=== PATIENT | male | born 1945 | race Caucasian/White ===

== ENCOUNTER 2016-11-16 12:09 | Inpatient (IN) | payer OTHER, BC ==
[2016-11-16 12:23] VITALS: BMI 25.8
--- NOTE | 2016-11-16 12:57 | PDOC ---
History of Present Illness - General History Source: Patient Exam Limitations: No Limitations <Silverio Duval - Last Filed: 11/16/16 15:03> <Iona Rosen - Last Filed: 11/16/16 16:38> - General Chief Complaint: Irregular Heart Beat Stated Complaint: IRREGULAR HEARTBEAT (PCP SENT) Time Seen by Provider: 11/16/16 12:53 - History of Present Illness Initial Comments: 11/16/16 14:19 71-year-old male with history of Parkinson's disease, hypertension, diabetes, status post CVA immediately following left hip replacement surgery referred to the ER by Dr. Wade of cardiology for new onset atrial fibrillation. Patient reports persistent hypotension of the past several days with lightheadedness, generalized weakness and malaise. Patient denies vomiting/ diarrhea/fever/chills/Chest pain/shortness of breath. Patient denies previous history of atrial fibrillation or flutter. Patient denies rectal bleeding or melena. REVIEW OF SYSTEMS CONSTITUTIONAL: No fever, no chills, no fatigue; + weakness EYES: No visual changes ENT: No ear pain, no sore throat CARDIOVASCULAR: No chest pain, no palpitations; + new onset atrial fibrillation RESPIRATORY: No cough, no SOB GI: No abdominal pain, no nausea, no vomiting, no constipation, no diarrhea GENITOURINARY: No dysuria, no frequency, no hematuria MUSKULOSKELETAL: No backpain, no joint pain, no myalgias SKIN: No rash NEURO: No headache EXAMINATION CONSTITUTIONAL: Well-appearing; well-nourished; in no apparent distress HEAD: Normocephalic; atraumatic EYES: PERRL; EOM intact; conj-pink; ENMT: External appears normal; normal oropharynx NECK: Supple; non-tender; no cervical lymphadenopathy CARD: Irregularly irregular; Normal S1, S2; no murmurs, rubs, or gallops RESP: Normal chest excursion with respiration; breath sounds clear and equal bilaterally; no wheezes, rhonchi, or rales ABD: Soft, non-distended; non-tender; no palpable organomegaly, no palpable hernias EXT: + led pipe rigidity in all 4 extr; + ulnar deviation and flexion of the MCP joints b/l; non-tender to palpation; distal pulses intact SKIN: Warm, dry, no rash NEURO: No focal neurological deficiencies. + Resting tremor bilaterally to the upper extremities, resolving upon voluntary movement initiation. (Silverio Duval) Past History - Past Medical History Anemia: No Asthma: No Cancer: No Cardiac Disorders: No CVA: No COPD: No CHF: No Dementia: No Diabetes: Yes (NIDDM) GI Disorders: No Disorders: No HTN: Yes Hypercholesterolemia: Yes Liver Disease: No Seizures: No Thyroid Disease: No Other medical history: Parkinson's - Surgical History Abdominal Surgery: No Appendectomy: No Cardiac Surgery: No Cholecystectomy: No Lung Surgery: No Neurologic Surgery: No Orthopedic Surgery: No - Psycho/Social/Smoking Cessation Hx Suicidal Ideation: No Smoking History: Never smoked Have you smoked in the past 12 months: No Information on smoking cessation initiated: No Hx Alcohol Use: Yes Drug/Substance Use Hx: No Substance Use Type: None Hx Substance Use Treatment: No <Silverio Duval - Last Filed: 11/16/16 15:03> <Iona Rosen - Last Filed: 11/16/16 16:38> - Past Medical History Allergies/Adverse Reactions: Allergies Allergy/AdvReac Type Severity Reaction Status Date / Time Penicillins Allergy Itching Verified 11/16/16 12:23 Home Medications: Ambulatory Orders Amlodipine Besylate [Norvasc -] 5 mg PO DAILY 11/16/16 Aspirin [Aspirin EC] 81 mg PO DAILY 11/16/16 Carbidopa/Levodopa [Carbidopa-Levodopa 25-250 Tab] 2.5 each PO TID 11/16/16 Gabapentin 400 mg PO HS 11/16/16 Gabapentin [Neurontin -] 400 mg PO Q8H 11/16/16 Metformin HCl [Glucophage -] 500 mg PO BID 11/16/16 Metoprolol Tartrate [Lopressor -] 50 mg PO BID 11/16/16 Pantoprazole Sodium [Protonix] 40 mg PO DAILY 11/16/16 Ramipril 5 mg PO DAILY 11/16/16 Cardiac Specific PMH - Complaint Specific PMHX Pacemaker: No <Silverio Duval - Last Filed: 11/16/16 15:03> - Vital Signs Last Vital Signs Temp Pulse Resp BP Pulse Ox 97.6 F 53 L 14 109/64 100 11/16/16 12:16 11/16/16 12:16 11/16/16 12:16 11/16/16 12:16 11/16/16 12:16 Heart Score/ECG Review - History History: Slightly suspicious - Electrocardiogram EKG: Non specific repolarization disturbance - Age Age: >/= 65 - Risk Factors Risk Factors Heart Score: Yes Hx Hypertension, Yes Hx Diabetes Based on the list above the patient has:: 1-2 risk factors - Troponin Troponin: </= normal limit - Score Heart Score - Total: 4 <Silverio Duval - Last Filed: 11/16/16 15:03> <Iona Rosen - Last Filed: 11/16/16 16:38> - ECG Intrepretation Comment:: 11/16/16 14:26 79, atrial fibrillation with slow ventricular response, left axis deviation, negative voltage criteria for LVH, Q waves in 3 and aVF, abnormal EKG. ( Silverio Duval) ED Treatment Course - LABORATORY CBC & Chemistry Diagram: 11/16/16 13:35 11/16/16 13:35 <Silverio Duval - Last Filed: 11/16/16 15:03> - LABORATORY CBC & Chemistry Diagram: 11/16/16 13:35 11/16/16 13:35 <Iona Rosen - Last Filed: 11/16/16 16:38> - ADDITIONAL ORDERS Additional order review: Laboratory Results 11/16/16 11/16/16 13:35 13:35 INR 1.06 Sodium 140 Potassium 5.1 Chloride 101 Carbon Dioxide 27 Anion Gap 12 BUN 26 H Creatinine 1.6 H Creat Clearance w eGFR 43.07 Random Glucose 123 H Calcium 9.4 Magnesium 2.2 Total Bilirubin 0.8 AST 11 L D ALT 10 L D Alkaline Phosphatase 91 Creatine Kinase 77 Troponin I < 0.02 Total Protein 7.2 Albumin 4.2 11/16/16 13:35 RBC 4.25 MCV 91.3 MCHC 32.7 RDW 14.4 D MPV 9.0 D Neutrophils % 56.6 Lymphocytes % 26.3 Monocytes % 13.2 H Eosinophils % 3.3 D Basophils % 0.6 D - RADIOLOGY Radiograph Interpretation: 11/16/16 13:41 EXAM: RAD/CHEST X-RAY PORTABLE Interpreted by Dr. Pancho Johnson IMPRESSION: There are no prior studies for comparison. There is an apical lordotic projection with degenerative spine and shoulder changes, clear lungs, prominent knob, normal yenifer and large heart. The angles are sharp. An acute chest process is not seen. (Iona Rosen) Medical Decision Making <Silverio Duval - Last Filed: 11/16/16 15:03> <Iona Rosen - Last Filed: 11/16/16 16:38> - Medical Decision Making 11/16/16 14:42 Patient 71-year-old male with history of Parkinson's disease, hypertension, diabetes, status post CVA referred to the ER for new onset atrial fibrillation. In the ER, patient is awake and alert, nontoxic appearing, hemodynamically stable. EKG reveals rate-controlled A. fib. Patient's chads 2 vascular score is 5 suggesting that he is at high risk of CVA due to regional fibrillation. We'll administer Lovenox. Will admit to telemetry further evaluation and treatment. ( Silverio Duval) 11/16/16 13:[address] Batista. Immediate response. Case was discussed. 11/16/16 13:[address] Torres. Immediate response. Case was discussed. (Iona Rosen) *DC/Admit/Observation/Transfer - Discharge Dispostion Admit: Yes <Silverio Duval - Last Filed: 11/16/16 15:03> <Iona Rosen - Last Filed: 11/16/16 16:38> Diagnosis at time of Disposition: Atrial fibrillation Qualifiers: Atrial fibrillation type: unspecified Qualified Code(s): I48.91 - Unspecified atrial fibrillation - Referrals - Attestations Scribe Attestion: 11/16/16 13:23 Documentation prepared by Iona Rosen, acting as medical transcription supervisor for Silverio Duval MD. (Iona Rosen)
[2016-11-16 13:58] LABS: BASOPHIL 0.6 % (0-2.0); EOSINOPHIL 3.3 % (0-4.5); MCH 29.8 pg (25.7-33.7); MCHC 32.7 g/dl (32.0-35.9); MEAN CELL VOLUME 91.3 fl (80-96); NEUTROPHILS 56.6 % (42.8-82.8); PLATELET COUNT 228 K/MM3 (134-434); RDW 14.4 % (11.9-15.9); WHITE BLOOD COUNT 7.4 K/mm3 (4.0-10.0)
[2016-11-16 14:00] LABS: ALBUMIN 4.2 g/dl (3.4-5.0); ANION GAP 12 (8-16); BILIRUBIN,TOTAL 0.8 mg/dL (0.2-1.0); CALCIUM 9.4 mg/dL (8.5-10.1); CO2 27 mmol/L (21-32); COCKROFT - GAULT 47.52; CREATININE 1.6 mg/dL (0.7-1.3); GLUCOSE,RANDOM 123 mg/dL (74-106); MAGNESIUM 2.2 mg/dL (1.8-2.4); SGOT/AST 11 U/L (15-37); SGPT/ALT 10 U/L (12-78); TOT PROT 7.2 g/dl (6.4-8.2)
[2016-11-16 14:04] LABS: ALK PHOS 91 U/L (45-117); TROPONIN I < 0.02 ng/ml (0.00-0.05)
[2016-11-16 14:25] LABS: INR 1.06 (0.82-1.09); PROTHROMBIN TIME (PATIENT) 11.7 SEC (9.98-11.88)
[2016-11-16] MEDS ORDERED: ENOXAPARIN NA (PORCINE) 80 MG/0.8 ML DISP.SYRIN SQ SCH (14:30)
[2016-11-16] MEDS ORDERED: ENOXAPARIN NA (PORCINE) 80 MG/0.8 ML DISP.SYRIN SQ ONE (16:51)
[2016-11-16] MEDS ORDERED: GABAPENTIN 400 MG CAPSULE (FP) PO SCH (20:15)
[2016-11-16] MEDS ORDERED: metFORMIN HCL 500 MG TABLET (FP) PO SCH (22:00)
[2016-11-16] MEDS ORDERED: GABAPENTIN 100 MG CAPSULE (FP) PO SCH (22:00)
[2016-11-16] MEDS: GABAPENTIN 100 MG CAPSULE (FP) PO SCH (22:02)
[2016-11-16] MEDS: CARBIDOPA/LEVODOPA 25/250 TABLET (FP) PO SCH (22:27)
[2016-11-17] MEDS: metFORMIN HCL 500 MG TABLET (FP) PO SCH ×2 (06:05→19:00)
[2016-11-17] MEDS: CARBIDOPA/LEVODOPA 25/250 TABLET (FP) PO SCH ×4 (06:05→21:55)
[2016-11-17] MEDS: GABAPENTIN 100 MG CAPSULE (FP) PO SCH ×3 (06:05→21:50)
[2016-11-17 07:34] LABS: BASOPHIL 0.7 % (0-2.0); EOSINOPHIL 4.5 % (0-4.5); MCH 30.3 pg (25.7-33.7); MCHC 33.4 g/dl (32.0-35.9); MEAN CELL VOLUME 90.5 fl (80-96); MEAN PLT VOLUME 8.5 fl (7.5-11.1); NEUTROPHILS 49.7 % (42.8-82.8); PLATELET COUNT 183 K/MM3 (134-434); RDW 14.5 % (11.9-15.9); WHITE BLOOD COUNT 4.8 K/mm3 (4.0-10.0)
[2016-11-17 07:35] LABS: ALBUMIN 3.4 g/dl (3.4-5.0); ANION GAP 7 (8-16); BILIRUBIN,TOTAL 0.7 mg/dL (0.2-1.0); CALCIUM 8.8 mg/dL (8.5-10.1); CO2 28 mmol/L (21-32); COCKROFT - GAULT 63.36; CREATININE 1.2 mg/dL (0.7-1.3); GLUCOSE,RANDOM 107 mg/dL (74-106); SGOT/AST 11 U/L (15-37); SGPT/ALT 7 U/L (12-78); TOT PROT 6.1 g/dl (6.4-8.2)
[2016-11-17 07:44] LABS: ALK PHOS 72 U/L (45-117); FREE T4 1.38 ng/dl (0.76-1.16); THYROID STIMULATING HORMONE 2.19 uIU/ml (0.358-3.74)
[2016-11-17 09:51] LABS: TROPONIN I < 0.02 ng/ml (0.00-0.05)
[2016-11-17] MEDS ORDERED: ENOXAPARIN NA (PORCINE) 80 MG/0.8 ML DISP.SYRIN SQ SCH (10:00)
[2016-11-17] MEDS ORDERED: ASPIRIN COATED 81 MG TABLET.EC PO SCH (10:00)
--- NOTE | 2016-11-17 10:04 | HP ---
Admitting History and Physical - Primary Care Physician PCP: Eligio Anderson - Admission Chief Complaint: New Afib History of Present Illness: ER HISTORY - History of Present Illness Initial Comments: 11/16/16 14:19 71-year-old male with history of Parkinson's disease, hypertension, diabetes, status post CVA immediately following left hip replacement surgery referred to the ER by Dr. Wade of cardiology for new onset atrial fibrillation. Patient reports persistent hypotension of the past several days with lightheadedness, generalized weakness and malaise. Patient denies vomiting/ diarrhea/fever/chills/Chest pain/shortness of breath. Patient denies previous history of atrial fibrillation or flutter. Patient denies rectal bleeding or melena. PT EXAMINED BY ME IN TELEMETRY Pt has been feeling dizzy and had seen Drill Doctor for regular check up. Denies chest pain or SOB.Sent to ER for dc BP meds and to start anticoagulation. 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 Cardiovascular: Yes: HTN Endocrine: Yes: Diabetes Mellitus Additional Past Medical History: Neuropathy - Smoking History Smoking history: Never smoked Have you smoked in the past 12 months: No - Alcohol/Substance Use Hx Alcohol Use: No Home Medications - Allergies Allergies/Adverse Reactions: Allergies Allergy/AdvReac Type Severity Reaction Status Date / Time Penicillins Allergy Itching Verified 11/16/16 12:23 - Home Medications Home Medications: Ambulatory Orders Amlodipine Besylate [Norvasc -] 5 mg PO DAILY 11/16/16 Aspirin [Aspirin EC] 81 mg PO DAILY 11/16/16 Carbidopa/Levodopa [Carbidopa-Levodopa 25-250 Tab] 2.5 each PO TID 11/16/16 Gabapentin 400 mg PO HS 11/16/16 Gabapentin [Neurontin -] 400 mg PO Q8H 11/16/16 Metformin HCl [Glucophage -] 500 mg PO BID 11/16/16 Metoprolol Tartrate [Lopressor -] 50 mg PO BID 11/16/16 Pantoprazole Sodium [Protonix] 40 mg PO DAILY 11/16/16 Ramipril 5 mg PO DAILY 11/16/16 Review of Systems - Review of Systems Constitutional: denies: Chills, Fever Cardiovascular: denies: Chest Pain, Palpitations, Shortness of Breath Neurological: reports: Dizziness, Tremors. denies: Weakness Physical Examination Vital Signs: Vital Signs Temperature 98.2 F 11/17/16 08:39 Pulse Rate 77 11/17/16 08:39 Respiratory Rate 20 11/17/16 08:39 Blood Pressure 108/67 11/17/16 08:39 O2 Sat by Pulse Oximetry (%) 99 11/17/16 06:00 Constitutional: Yes: No Distress, Calm Cardiovascular: Yes: Pulse Irregular Respiratory: Yes: CTA Bilaterally Gastrointestinal: Yes: Normal Bowel Sounds, Soft. No: Distention, Tenderness Edema: No Psychiatric: Yes: Alert Labs: CBC, BMP 11/17/16 05:35 11/17/16 05:35 Imaging - Results Chest X-ray: Image Reviewed (clear) EKG: Image Reviewed (Afib) Problem List - Problems (1) Atrial fibrillation Code(s): I48.91 - UNSPECIFIED ATRIAL FIBRILLATION Qualifiers: Atrial fibrillation type: unspecified Qualified Code(s): I48.91 - Unspecified atrial fibrillation (2) Parkinson disease Code(s): G20 - PARKINSON'S DISEASE (3) HTN (hypertension) Code(s): I10 - ESSENTIAL (PRIMARY) HYPERTENSION (4) Diabetes Code(s): E11.9 - TYPE 2 DIABETES MELLITUS WITHOUT COMPLICATIONS Assessment/Plan PLAN Received Lovenox Rate is controlled continue with Sinemet and Gabapentin Check BGM, sliding scale PT eval Fall precautions cardiac enzymes negative spoke with DR Anderson-- Pt's PMD
--- NOTE | 2016-11-17 10:54 | PN ---
Progress Note, Physician History of Present Illness: 71-year-old male with history of Parkinson's disease, hypertension, diabetes, status post CVA immediately following left hip replacement surgery referred to the ER by Dr. Wade of cardiology for new onset atrial fibrillation. Patient reports persistent hypotension of the past several days with lightheadedness, generalized weakness and malaise. Patient denies vomiting/ diarrhea/fever/chills/Chest pain/shortness of breath. Patient denies previous history of atrial fibrillation or flutter. Patient denies rectal bleeding or melena. Patient seen in [place] office consultation done yesterday BP 70/50 af/aflutter VR 55 reffered to er for ac and meds adjustment echo nl ef LAE - Current Medication List Current Medications: Active Medications Carbidopa/Levodopa (Sinemet 25/250 -) 2.5 each PO TID [facility] Last Admin: 11/17/16 06:05 Dose: 2.5 each Enoxaparin Sodium (Lovenox -) 80 mg SQ BID AMY Gabapentin (Neurontin -) 100 mg PO AM [facility] Last Admin: 11/17/16 06:05 Dose: 100 mg Gabapentin (Neurontin -) 100 mg PO DAILY@1200 AMY Gabapentin (Neurontin -) 200 mg PO HS [facility] Last Admin: 11/16/16 22:02 Dose: 200 mg Insulin Aspart (Novolog Vial Sliding Scale -) 1 vial SQ BIDAC [facility] PRN Reason: Protocol Metformin HCl (Glucophage -) 250 mg PO BIDI [facility] Last Admin: 11/17/16 06:05 Dose: 250 mg Pantoprazole Sodium (Protonix -) 40 mg PO DAILY [facility] - Objective Vital Signs: Vital Signs Temperature 98.2 F 11/17/16 08:39 Pulse Rate 77 11/17/16 08:39 Respiratory Rate 20 11/17/16 08:39 Blood Pressure 108/67 11/17/16 08:39 O2 Sat by Pulse Oximetry (%) 99 11/17/16 06:00 Eyes: Yes: WNL, Conjunctiva Clear, EOM Intact HENT: Yes: WNL, Atraumatic, Normocephalic Neck: Yes: WNL, Supple, Trachea Midline Cardiovascular: Yes: Pulse Irregular Respiratory: Yes: WNL, Regular, CTA Bilaterally Gastrointestinal: Yes: WNL, Normal Bowel Sounds Genitourinary: Yes: WNL Musculoskeletal: Yes: WNL Extremities: Yes: WNL Edema: No Integumentary: Yes: WNL Neurological: Yes: WNL, Alert, Oriented ...Motor Strength: WNL Psychiatric: Yes: WNL Labs: CBC, BMP 11/17/16 05:35 11/17/16 05:35 INR, PTT INR 1.06 (0.82-1.09) 11/16/16 13:35 Problem List - Problems (1) Atrial fibrillation Code(s): I48.91 - UNSPECIFIED ATRIAL FIBRILLATION Qualifiers: Atrial fibrillation type: unspecified Qualified Code(s): I48.91 - Unspecified atrial fibrillation Assessment/Plan new onset of AF dm hypotension due to overmedication parkinsons ds cri cr clearence 43 plan toprol xl 25 qd ac with xarelto 15 QHS d/c lovenox
[2016-11-17] MEDS: PANTOPRAZOLE 40 MG TABLET (FP) PO SCH (11:19)
--- NOTE | 2016-11-17 12:40 | EKG ---
Test Reason : Blood Pressure : / mmHG Vent. Rate : 057 BPM Atrial Rate : 535 BPM P-R Int : 000 ms QRS Dur : 098 ms QT Int : 466 ms P-R-T Axes : 000 -33 -45 degrees QTc Int : 453 ms ATRIAL FIBRILLATION WITH SLOW VENTRICULAR RESPONSE LEFT AXIS DEVIATION INFERIOR INFARCT , AGE UNDETERMINED ABNORMAL ECG NO PREVIOUS ECGS AVAILABLE Confirmed by EVAN HOLLOWAY MD ([id number]) on 11/17/2016 12:40:04 PM Referred By: Confirmed By:EVAN HOLLOWAY MD
[2016-11-17] MEDS: METOPROLOL SUCCINATE 25 MG TAB.SR.24H (FP) PO SCH (13:08)
[2016-11-17] MEDS ORDERED: RIVAROXABAN 15 MG TABLET PO SCH (17:30)
[2016-11-17] MEDS: INSULIN SLIDING SCALE (NOVOLOG) 1 VIAL SQ SCH (19:00)
[2016-11-17] MEDS ORDERED: PT OWN MED DRAWER 7, Y5N ONE ×2 (21:38→21:52)
[2016-11-18] MEDS ORDERED: PT OWN MED DRAWER 7, Y5N ONE (05:57)
[2016-11-18] MEDS: CARBIDOPA/LEVODOPA 25/250 TABLET (FP) PO SCH ×2 (06:14→13:08)
[2016-11-18] MEDS: metFORMIN HCL 500 MG TABLET (FP) PO SCH (06:14)
[2016-11-18] MEDS: GABAPENTIN 100 MG CAPSULE (FP) PO SCH ×2 (06:17→11:28)
[2016-11-18] MEDS: INSULIN SLIDING SCALE (NOVOLOG) 1 VIAL SQ SCH (06:17)
--- NOTE | 2016-11-18 10:48 | DS ---
Physical Examination Vital Signs: Vital Signs Temperature 98.2 F 11/18/16 09:00 Pulse Rate 62 11/18/16 09:00 Respiratory Rate 16 11/18/16 09:00 Blood Pressure 104/72 11/18/16 09:00 O2 Sat by Pulse Oximetry (%) 99 11/17/16 21:00 Constitutional: Yes: No Distress, Calm Cardiovascular: Yes: Pulse Irregular Respiratory: Yes: CTA Bilaterally Gastrointestinal: Yes: Normal Bowel Sounds, Soft. No: Distention, Tenderness Edema: No Labs: CBC, BMP 11/17/16 05:35 11/17/16 05:35 Discharge Summary Reason For Visit: ATRIAL FIBRILLATION Current Active Problems Atrial fibrillation (Acute) Diabetes (Acute) HTN (hypertension) (Acute) Parkinson disease (Acute) Hospital Course: Admitted for new onset Afib He was sent from [facility] [employer] office Also found to have Orthostasis Meds adjusted DC Ramipril as creatinine was elevated , DC Amlodipine, decrease Metoprolol to 25 mg Qdaily ON Tele monitor Echo done- Normal LV function Rate controlled decrease Metformin due to renal function creatinine improved with IVFluids evaluated by PT as well Was initially on Lovenox and now changed to Xarelto-- tolerating the medication DC ASA Pt is stable for dc home Condition: Good - Instructions Referrals: Eligio Anderson MD [Primary Care Provider] - Disposition: HOME - Home Medications Comprehensive Discharge Medication List: Ambulatory Orders Amlodipine Besylate [Norvasc -] 5 mg PO DAILY 11/16/16 Aspirin [Aspirin EC] 81 mg PO DAILY 11/16/16 Carbidopa/Levodopa [Carbidopa-Levodopa 25-250 Tab] 2.5 each PO TID 11/16/16 Gabapentin 400 mg PO HS 11/16/16 Gabapentin [Neurontin -] 400 mg PO Q8H 11/16/16 Metformin HCl [Glucophage -] 500 mg PO BID 11/16/16 Metoprolol Tartrate [Lopressor -] 50 mg PO BID 11/16/16 Pantoprazole Sodium [Protonix] 40 mg PO DAILY 11/16/16 Ramipril 5 mg PO DAILY 11/16/16
--- NOTE | 2016-11-18 10:55 | PN ---
Progress Note, Physician Chief Complaint: Pt A&Ox3; OOB in chair; no palpitations or dizziness. History of Present Illness: 71-year-old white male with history of Parkinson's disease, hypertension, diabetes, status post CVA immediately following left hip replacement surgery, referred to the ER by Dr. Wade of cardiology for new onset atrial fibrillation. Patient reports persistent hypotension of the past several days with lightheadedness, generalized weakness and malaise. Patient denies vomiting/ diarrhea/fever/chills/Chest pain/shortness of breath. Patient denies previous history of atrial fibrillation or flutter. Patient denies rectal bleeding or melena. - Current Medication List Current Medications: Active Medications Carbidopa/Levodopa (Sinemet 25/250 -) 2.5 each PO TID [facility] Last Admin: 11/18/16 06:14 Dose: 2.5 each Gabapentin (Neurontin -) 100 mg PO AM [facility] Last Admin: 11/18/16 06:17 Dose: 100 mg Gabapentin (Neurontin -) 100 mg PO DAILY@1200 [facility] Last Admin: 11/17/16 11:19 Dose: 100 mg Gabapentin (Neurontin -) 200 mg PO HS [facility] Last Admin: 11/17/16 21:50 Dose: 200 mg Insulin Aspart (Novolog Vial Sliding Scale -) 1 vial SQ BIDAC [facility] PRN Reason: Protocol Last Admin: 11/18/16 06:17 Dose: Not Given Metformin HCl (Glucophage -) 250 mg PO BIDI [facility] Last Admin: 11/18/16 06:14 Dose: 250 mg Metoprolol Succinate (Toprol Xl -) 25 mg PO DAILY [facility] Last Admin: 11/17/16 13:08 Dose: 25 mg Pantoprazole Sodium (Protonix -) 40 mg PO DAILY [facility] Last Admin: 11/17/16 11:19 Dose: 40 mg Rivaroxaban (Xarelto -) 15 mg PO DAILY@1730 [facility] Last Admin: 11/17/16 18:59 Dose: 15 mg - Objective Vital Signs: Vital Signs Temperature 98.2 F 11/18/16 09:00 Pulse Rate 62 11/18/16 09:00 Respiratory Rate 16 11/18/16 09:00 Blood Pressure 104/72 11/18/16 09:00 O2 Sat by Pulse Oximetry (%) 99 11/17/16 21:00 Cardiovascular: Yes: Pulse Irregular, Murmur (2/6 systolic murmur, LSB-->apex.) Respiratory: Yes: WNL Gastrointestinal: Yes: Soft ...Rectal Exam: Yes: Deferred Genitourinary: No: Anuria Musculoskeletal: Yes: Muscle Weakness Extremities: Yes: Cool Edema: No Peripheral Pulses WNL: Yes Labs: CBC, BMP 11/17/16 05:35 11/17/16 05:35 INR, PTT INR 1.06 (0.82-1.09) 11/16/16 13:35 - ....Imaging Other: Image Reviewed (telemetry: AF with controlled VR) Problem List - Problems (1) Atrial fibrillation Assessment/Plan: ON meotrolol ER and rivaroxaban. Code(s): I48.91 - UNSPECIFIED ATRIAL FIBRILLATION Qualifiers: Atrial fibrillation type: unspecified Qualified Code(s): I48.91 - Unspecified atrial fibrillation (2) Diabetes Code(s): E11.9 - TYPE 2 DIABETES MELLITUS WITHOUT COMPLICATIONS (3) HTN (hypertension) Assessment/Plan: on metoprolol ER. Recheck orthostatic viatl signs (+ early am); avoid dehydration. Code(s): I10 - ESSENTIAL (PRIMARY) HYPERTENSION (4) Parkinson disease Code(s): G20 - PARKINSON'S DISEASE
[2016-11-18] MEDS: PANTOPRAZOLE 40 MG TABLET (FP) PO SCH (11:28)
[2016-11-18] MEDS: METOPROLOL SUCCINATE 25 MG TAB.SR.24H (FP) PO SCH (11:28)
[2016-11-18 13:32] VITALS: BP 159/87; PULSE 87; TEMP 97.6
== END 2016-11-18 13:53 | disposition home or self-care (01) | DRG 310 ==
LOC: JER 12:09 → JERBED 15:04 → J4W 19:12
PROVIDERS: ADMIT Internal Medicine; ATTEND Internal Medicine
DX: I48.91 Unspecified atrial fibrillation (principal); G20 Parkinson's disease; I10 Essential (primary) hypertension; I95.1 Orthostatic hypotension; Z86.73 Personal history of transient ischemic attack (TIA), and cerebral infarction without residual deficits
CPT/HCPCS: 36415; 71010-TC; 80053; 82550; 83735; 84439; 84443; 84484; 85025; 85610; 93005; 93010; 93306-TC; 97116-GP; 97161-GP; 99281-25

== ENCOUNTER 2018-07-18 16:37 | Emergency (ER) | payer OTHER, BC ==
--- NOTE | 2018-07-18 17:31 | PDOC ---
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 As per daughter, patient is usually more coherent. Patient denies any complaints at this time. The patient denies chest pain, shortness of breath, headache and dizziness. Denies fever, chills, nausea, vomit, diarrhea and constipation. Denies dysuria, frequency, urgency and hematuria. Allergies: Penicillin Social history: Denies tobacco use. PCP: Dr. Eduardo - Physicial Exam PE: 07/18/18 18:23 GENERAL: Well developed, well nourished. Awake and alert. No acute distress. HEENT: Normocephalic, atraumatic. PERRLA, EOMI. No conjunctival pallor. Sclera are non- icteric. Moist mucous membranes. Oropharynx is clear. NECK: Supple. Full ROM. No JVD. Carotid pulses 2+ and symmetric, without bruits. No thyromegaly. No lymphadenopathy. CARDIOVASCULAR: + irregular regular rate and rhythm No murmurs, rubs, or gallops. Distal pulses are 2+ and symmetric. PULMONARY: No evidence of respiratory distress. Lungs clear to auscultation bilaterally. No wheezing, rales or rhonchi. ABDOMINAL: Soft. Non-tender. Non-distended. No rebound or guarding. No organomegaly. Normoactive bowel sounds. MUSCULOSKELETAL Normal range of motion at all joints. No bony deformities or tenderness. No CVA tenderness. EXTREMITIES: + chronic left shoulder injury with decreased ROM. No cyanosis. No clubbing. No edema. No calf tenderness. SKIN: Warm and dry. Normal capillary refill. No rashes. No jaundice. NEUROLOGICAL: + apparent facial asymmetry, dysarthria slightly worsened than usual as per daughter, shuffling gait. No resting tremors. Alert, awake, appropriate. Cranial nerves 2-12 intact. Normoreflexic in the upper and lower extremities. Normal speech. Toes are down-going bilaterally. PSYCHIATRIC: Cooperative. Good eye contact. Appropriate mood and affect. - Medical Decision Making 07/18/18 18:23 Documentation prepared by Clifton Carson, acting as medical unit secretary for Cuhyita Anderson MD <Clifton Carson - Last Filed: 07/18/18 18:22> - Resident Resident Name: Kavon Batista - ED Attending Attestation I have performed the following: I have examined & evaluated the patient, The case was reviewed & discussed with the resident, I agree w/resident's findings & plan, Exceptions are as noted - HPI HPI: 07/18/18 17:30 72 yo male lost hs balance and hot rt side of his head. He has Parkinson's disease and h/o frequent falls. No LOC, no cp, no sob - Medical Decision Making 07/18/18 17:36 72-year-old male with a past medical history Parkinson's disease, atrial fibrillation on Xalrelto, diabetes, bilateral hip replacement fell today and reports hitting his forehead without LOC 07/18/18 17:39 diff diag: closed head trauma , r/o brain bleed,fracture,ekg ,cbc,comp,ct scan head 07/18/18 19:57 CAT scan of the head was negative for any acute intracranial pathology. There was no skull fracture, no intracranial bleed, no infarct, no mass lesion, no midline shift CAT scan of the C-spine showed extensive degenerative joint disease but no fracture or acute subluxation 07/18/18 20:26 Addendum physical exam addendum to physical exam. Please note that on the right big toe has a grossly overgrown toenails elucidating into his adjacent toe. Several days ago he injured the toenail on his right second digit and is partially avulsed. We discussed the case with Dr. Eduardo and he wants to see the patient in the office tomorrow. 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 EKG is a flutter rate of 68. He has a history of chronic A. fib / A. fib and is on anticoagulation. INR equal to 2.15 Troponin is less than 0.02, Creatinine 1.1. His electrolytes are within normal limits Patient is conversant and alert, and agrees with the plan Impression advanced Parkinson's with shuffling gait, fall. <Chuyita Anderson - Last Filed: 07/18/18 20:28>
[2018-07-18 18:15] LABS: BASO % 0.4 % (0-2.0); EOS % 2.3 % (0-4.5); HEMATOCRIT 39.4 % (35.4-49); HEMOGLOBIN 13.1 GM/dL (11.7-16.9); LYMPH % 18.3 % (8-40); MCH 29.9 pg (25.7-33.7); MCHC 33.1 g/dl (32.0-35.9); MEAN CELL VOLUME 90.2 fl (80-96); MEAN PLT VOLUME 7.4 fl (7.5-11.1); MONO % 9.4 % (3.8-10.2); NEUT % 69.6 % (42.8-82.8); PLATELET COUNT 225 K/MM3 (134-434); RBC 4.37 M/mm3 (4.00-5.60); RDW 13.9 % (11.9-15.9)
--- NOTE | 2018-07-18 18:23 | PDOC ---
History of Present Illness - General Chief Complaint: Injury Stated Complaint: FALL Time Seen by Provider: 07/18/18 17:19 History Source: Patient Exam Limitations: No Limitations - History of Present Illness Initial Comments: 72 yo M with a hx of parkinson (with existing dysarthria), HTN, afib (on xarelto ) and DM presents to the emergency department s/p fall in his home with head trauma at approximately 4 pm. Per the patient, he has fallen multiple times in the past due to tripping on his feet likely secondary to the parkinsons gait ( he endorses short shuffles). He was going through a doorway when he fell. Antecedent to the event, he denied the following: fever, chills, visual changes , dizziness, lightheadedness, nausea, vomiting, chest pain, and FND. Currently, he denies any symptomatic complaints. Denies the following: headaches, fever, chest pain, nausea, vomiting, lightheadedness, and SOB. Allergies: PCN Social: Denies tobacco, alcohol, and substance abuse. Past History - Past Medical History Allergies/Adverse Reactions: Allergies Allergy/AdvReac Type Severity Reaction Status Date / Time Penicillins Allergy Itching Verified 07/18/18 17:56 Home Medications: Ambulatory Orders Carbidopa/Levodopa [Carbidopa-Levodopa 25-250 Tab] 2.5 each PO TID 11/16/16 Pantoprazole Sodium [Protonix] 40 mg PO DAILY 11/16/16 Gabapentin [Neurontin -] 100 mg PO AM tab 11/18/16 Gabapentin [Neurontin -] 100 mg PO DAILY@1200 tab 11/18/16 Gabapentin [Neurontin -] 200 mg PO HS tab 11/18/16 Metoprolol Succinate [Toprol XL -] 25 mg PO DAILY #30 tab 11/18/16 Rivaroxaban [Xarelto] 15 mg PO DAILY@1730 #30 tablet 11/18/16 metFORMIN HCL [Glucophage -] 250 mg PO BIDI #60 tab 11/18/16 Anemia: No Asthma: No Cancer: No Cardiac Disorders: No CVA: No COPD: No CHF: No Dementia: No Diabetes: Yes GI Disorders: No Disorders: No HTN: Yes Hypercholesterolemia: Yes Liver Disease: No Seizures: No Thyroid Disease: No - Surgical History Abdominal Surgery: No Appendectomy: No Cardiac Surgery: No Cholecystectomy: No Lung Surgery: No Neurologic Surgery: No Orthopedic Surgery: Yes - Suicide/Smoking/Psychosocial Hx Smoking History: Never smoked Have you smoked in the past 12 months: No Information on smoking cessation initiated: No Hx Alcohol Use: No Drug/Substance Use Hx: No Substance Use Type: None Hx Substance Use Treatment: No Review of Systems - Review of Systems Able to Perform ROS?: Yes Is the patient limited Indian proficient: No Constitutional: No: Chills, Diaphoresis, Fever, Weakness HEENTM: No: Eye Pain, Recent change in vision, Ear Pain, Nose Pain, Throat Pain , Mouth Pain Respiratory: No: Cough, Shortness of Breath, SOB with Exertion, Hemoptysis Cardiac (ROS): No: Chest Pain, Lightheadedness, Palpitations, Syncope, Chest Tightness ABD/GI: No: Constipated, Diarrhea, Nausea, Poor Appetite, Poor Fluid Intake, Rectal Bleeding, Vomiting, Tarry Stools : No: Burning, Dysuria, Hematuria, Urgency Musculoskeletal: No: Back Pain, Joint Pain, Neck Pain Integumentary: No: Dryness, Erythema, Flushing, Lesions, Pruritus, Rash Neurological: Yes: Unsteady Gait (shuffling gait. unchanged previously). No: Headache, Numbness, Tingling, Tremors, Ataxia, Dizziness Psychiatric: No: Change in Appetite Endocrine: No: Unexplained Weight Gain Hematologic/Lymphatic: No: Anemia *Physical Exam - Vital Signs Last Vital Signs Temp Pulse Resp BP Pulse Ox 98.7 F 93 H 16 93/65 100 07/18/18 16:40 07/18/18 16:40 07/18/18 16:40 07/18/18 16:40 07/18/18 16:40 - Physical Exam General Appearance: Yes: Nourished, Appropriately Dressed, Thin. No: Apparent Distress, Intoxicated HEENT: positive: EOMI, JESS, Normal ENT Inspection, Normal Voice, Symmetrical, TMs Normal, Pharynx Normal, Hearing Grossly Normal. negative: Pale Conjunctivae , Scleral Icterus (R), Scleral Icterus (L), Muffled/Hoarse voice, Pharyngeal Erythema, Tonsillar Exudate, Tonsillar Erythema, Nasal Congestion, Rhinorrhea, Excessive drooling Neck: positive: Trachea midline. negative: Tender, Lymphadenopathy (R), Lymphadenopathy (L), Tender lateral, Tender midline Respiratory/Chest: positive: Lungs Clear, Normal Breath Sounds. negative: Chest Tender, Respiratory Distress, Accessory Muscle Use Cardiovascular: positive: Regular Rhythm, Regular Rate, S1, S2. negative: Systolic Murmur Gastrointestinal/Abdominal: positive: Normal Bowel Sounds, Flat, Soft. negative : Tender, Guarding, Rebound, Tenderness, Hernia Lymphatic: negative: Adenopathy Musculoskeletal: positive: Normal Inspection. negative: CVA Tenderness, Vertebral Tenderness Extremity: positive: Normal Capillary Refill, Normal Inspection, Normal Range of Motion. negative: Tender, Swelling, Calf Tenderness Integumentary: positive: Normal Color, Dry, Warm. 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 dysarthria with low volume also consistent per the daughter with baseline) Moderate Sedation - Procedure Monitoring Vital Signs: Procedure Monitoring Vital Signs Temperature 98.7 F 07/18/18 16:40 Pulse Rate 93 H 07/18/18 16:40 Respiratory Rate 16 07/18/18 16:40 Blood Pressure 93/65 07/18/18 16:40 O2 Sat by Pulse Oximetry (%) 100 07/18/18 16:40 Heart Score/ECG Review - ECG Intrepretation Comment:: atrial flutter with non specific T wave abnormality. no ST elevations or depressions. ventricular rate is 69 bpm with atrial rate is 187 bpm. QTc is 432 ms. ED Treatment Course - LABORATORY CBC & Chemistry Diagram: 07/18/18 18:00 07/18/18 18:00 - ADDITIONAL ORDERS Additional order review: Laboratory Results 07/18/18 17:25 POC Glucometer 120.60663 07/18/18 07/18/18 18:00 17:25 RBC 4.37 MCV 90.2 MCHC 33.1 RDW 13.9 MPV 7.4 L D Neutrophils % 69.6 D Lymphocytes % 18.3 D Monocytes % 9.4 Eosinophils % 2.3 Basophils % 0.4 POC Glucometer 120.01710 - RADIOLOGY Radiology Studies Ordered: Category Date Time Status CERVICAL SPINE CT W/O CONTR [CT] Stat CT Scan 07/18/18 17:[address] WITHOUT CONTRAST [CT] Stat CT Scan 07/18/18 17:40 Ordered CHEST X-RAY PORTABLE* [RAD] Stat Radiology 07/18/18 17:40 Ordered Medical Decision Making - Medical Decision Making 72 yo M with a hx of parkinson (with existing dysarthria), HTN, afib (on xarelto ) and DM presents to the emergency department s/p fall in his home with head trauma at approximately 4 pm. Initial vitals: Initial Vital Signs Temp Pulse Resp BP Pulse Ox 98.7 F 93 H 16 93/65 100 07/18/18 16:40 07/18/18 16:40 07/18/18 16:40 07/18/18 16:40 07/18/18 16:40 Work up: ddx: rule out intracranial bleed vs fracture. will order head ct and cervical spine CT, cbc, cmp, trops, ekg, BNP, cxr, pt/inr, type and screen Laboratory Tests 07/18/18 07/18/18 07/18/18 17:25 17:54 18:00 WBC 5.0 RBC 4.37 Hgb 13.1 Hct 39.4 MCV 90.2 MCH 29.9 MCHC 33.1 RDW 13.9 Plt Count 225 D MPV 7.4 L D Absolute Neuts (auto) 3.5 Neutrophils % 69.6 D Lymphocytes % 18.3 D Monocytes % 9.4 Eosinophils % 2.3 Basophils % 0.4 Nucleated RBC % 0 PT with INR INR Sodium Potassium Chloride Carbon Dioxide Anion Gap BUN Creatinine Creat Clearance w eGFR POC Glucometer 120.28578 Random Glucose Calcium Total Bilirubin AST ALT Alkaline Phosphatase Creatine Kinase Troponin I B-Natriuretic Peptide Total Protein Albumin Blood Type B POSITIVE Antibody Screen 07/18/18 07/18/18 07/18/18 18:00 18:00 18:05 WBC RBC Hgb Hct MCV MCH MCHC RDW Plt Count MPV Absolute Neuts (auto) Neutrophils % Lymphocytes % Monocytes % Eosinophils % Basophils % Nucleated RBC % PT with INR 25.60 H INR 2.15 H Sodium 140 Potassium 4.4 Chloride 106 Carbon Dioxide 26 Anion Gap 8 BUN 31 H Creatinine 1.1 Creat Clearance w eGFR > 60 POC Glucometer Random Glucose 105 Calcium 8.3 L Total Bilirubin 0.5 AST 12 L ALT 10 L Alkaline Phosphatase 100 Creatine Kinase 103 Troponin I < 0.02 B-Natriuretic Peptide 687.8 H Total Protein 6.4 Albumin 3.7 Blood Type B POSITIVE Antibody Screen Negative head ct was negative for acute intracranial process. no elevation in troponins. BNP slightly elevated at 687. cxr was negative for acute process. c-spine CT negative for acute processes but shows chronic degenerative joint disease. patient was well appearing on re-assessment and wants to be discharged. prior to discharge, the patient informed us about a right 2nd toe injury he sustained a few days ago due to an overgrown nail on the 1st digit of the right foot. on exam, the 1st digit toe has a nail overgrown bending to the adjacent toe. on the injured 2nd digit toe, he had retention of sensation with partial avulsion at the tip with black crustations on the dorsal aspect. it was recommended to the patient to follow up with podiatry and to follow up with Dr. Eduardo. Prior to discharge, Dr. Eduardo was contacted and given an update on the patient. He states he will see the patient tomorrow. Given strict return precautions to the patient and his daughter. they agreed to follow up with Dr. Eduardo the next day. Dispo: Discharge. *DC/Admit/Observation/Transfer Diagnosis at time of Disposition: Fall Qualifiers: Encounter type: initial encounter Qualified Code(s): W19.XXXA - Unspecified fall, initial encounter - Discharge Dispostion Disposition: HOME Decision to Admit order: No - Referrals Referrals: Brendan Centeno MD [Staff Physician] - Ayla Eduardo MD [Primary Care Provider] - - Patient Instructions Printed Discharge Instructions: How to Prevent Falls Additional Instructions: you were seen for your fall. labs were within normal limits. your head scan was normal. please return to the emergency department if you have worsening mental status, focal neurological deficits, and nausea and vomiting. please check on his mental status at 12am tonight. I spoke to Jayce Beaulieu and he wants him to follow up on 07/19/2018. You must bring up the toe on the right foot. please bring this to his attention it is paramount. 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 thank you. - Post Discharge Activity Forms/Work/School Notes: Back to Work
[2018-07-18 18:27] VITALS: TEMP 98.7; BMI 27.3
[2018-07-18 18:43] LABS: INR 2.15 (0.83-1.09); PROTHROMBIN TIME (PATIENT) 25.6 SEC (9.7-13.0)
[2018-07-18 18:47] LABS: ALBUMIN 3.7 g/dl (3.4-5.0); ALK PHOS 100 U/L (45-117); ANION GAP 8 MMOL/L (8-16); BILIRUBIN,TOTAL 0.5 mg/dL (0.2-1); BLOOD UREA NITROGEN 31 mg/dL (7-18); CALCIUM 8.3 mg/dL (8.5-10.1); CHLORIDE 106 mmol/L (98-107); CO2 26 mmol/L (21-32); CREATININE 1.1 mg/dL (0.55-1.3); GLUCOSE,RANDOM 105 mg/dL (74-106); N-TERMINAL BNP 687.8 pg/ml (5-125); POTASSIUM 4.4 mmol/L (3.5-5.1); SGOT/AST 12 U/L (15-37); SGPT/ALT 10 U/L (13-61); SODIUM 140 mmol/L (136-145); TOT PROT 6.4 g/dl (6.4-8.2)
[2018-07-18 21:06] VITALS: BP 131/82; PULSE 71
--- NOTE | 2018-07-19 13:18 | EKG ---
Test Reason : Blood Pressure : / mmHG Vent. Rate : 069 BPM Atrial Rate : 187 BPM P-R Int : 000 ms QRS Dur : 090 ms QT Int : 404 ms P-R-T Axes : 256 -22 -23 degrees QTc Int : 432 ms ATRIAL FLUTTER WITH VARIABLE A-V BLOCK NONSPECIFIC T WAVE ABNORMALITY ABNORMAL ECG WHEN COMPARED WITH ECG OF 16-NOV-2016 12:25, ATRIAL FLUTTER HAS REPLACED ATRIAL FIBRILLATION ST NO LONGER DEPRESSED IN LATERAL LEADS Confirmed by AMIE VAN, EVAN ([id number]) on 07/19/2018 1:17:44 PM Referred By: Confirmed By:EVAN HOLLOWAY MD
== END 2018-07-18 21:11 | disposition home or self-care (01) ==
LOC: JER 16:37
DX: S09.8XXA Other specified injuries of head, initial encounter (principal); W18.39XA Other fall on same level, initial encounter; Y93.89 Activity, other specified; Y92.018 Other place in single-family (private) house as the place of occurrence of the external cause; Y99.8 Other external cause status; G20 Parkinson's disease; I48.91 Unspecified atrial fibrillation; Z79.01 Long term (current) use of anticoagulants; E11.9 Type 2 diabetes mellitus without complications; Z96.643 Presence of artificial hip joint, bilateral; R47.1 Dysarthria and anarthria; M19.012 Primary osteoarthritis, left shoulder
CPT/HCPCS: 36415; 70450-TC; 71045-TC-FY; 72125-TC; 80053; 82550; 82962; 83880; 84484; 85025; 85610; 86850; 86900; 86901; 93005; 93010; 99283-25

== ENCOUNTER 2023-01-04 12:36 | Inpatient (IN) | payer OTHER, BC ==
[2023-01-04 13:55] LABS: BASO % 0.4 % (0-2.0); HEMATOCRIT 38.5 % (35.4-49); HEMOGLOBIN 12.6 GM/dL (11.7-16.9); LYMPH % 18.1 % (8-40); MCH 30.8 pg (25.7-33.7); MCHC 32.7 g/dl (32.0-35.9); MEAN CELL VOLUME 94.3 fl (80-96); MEAN PLT VOLUME 7.5 fl (7.5-11.1); MONO % 11.8 % (3.8-10.2); NEUT % 68.7 % (42.8-82.8); PLATELET COUNT 202 10^3/uL (134-434); RBC 4.08 M/mm3 (4.00-5.60); RDW 13.2 % (11.9-15.9); WHITE BLOOD COUNT 5.5 K/mm3 (4.0-10.0)
[2023-01-04 14:05] LABS: INR 1.2 (0.83-1.09); PROTHROMBIN TIME (PATIENT) 13.9 SEC (9.7-13.0)
[2023-01-04 14:07] LABS: ACTIVATED PTT 35.4 SECONDS (25.2-36.5)
[2023-01-04 14:17] LABS: POTASSIUM 4.8 mmol/L (3.5-5.1)
[2023-01-04] MEDS ORDERED: CARBIDOPA/LEVODOPA 25/250 TABLET (FP) PO ONE (14:17)
[2023-01-04 14:19] LABS: ALBUMIN 3.8 g/dl (3.4-5.0); BLOOD UREA NITROGEN 30.7 mg/dL (7-18); CALCIUM 9.2 mg/dL (8.5-10.1); MAGNESIUM 2.3 mg/dL (1.8-2.4)
[2023-01-04 14:22] LABS: CREATININE 1.9 mg/dL (0.55-1.3)
[2023-01-04 14:24] LABS: BILIRUBIN,TOTAL 1.1 mg/dL (0.2-1); TOT PROT 6.6 g/dl (6.4-8.2)
[2023-01-04] MEDS ORDERED: CARBIDOPA/LEVODOPA 25/250 TABLET (FP) ONE (15:04)
[2023-01-04] MEDS: LACTATED RINGERS SOLUTION 1,000 ML/1,000 ML INFUS.BAG IV SCH (16:07)
[2023-01-04] MEDS ORDERED: LACTATED RINGERS SOLUTION 1,000 ML/1,000 ML INFUS.BAG IV STA (17:03)
[2023-01-04] MEDS ORDERED: LACTATED RINGERS SOLUTION 1,000 ML/1,000 ML INFUS.BAG IV SCH (17:45)
[2023-01-04 18:46] LABS: EPI CELLS 1 /uL (0-25.1); HYALINE CASTS 0 /uL (0-3.1); URINE APPEARANCE CLEAR; URINE BACTERIA 1 /uL (0-1359); URINE BILIRUBIN NEGATIVE (NEGATIVE); URINE COLOR YELLOW; URINE GLUCOSE (UA) NEGATIVE (NEGATIVE); URINE KETONE NEGATIVE (NEGATIVE); URINE LEUK ESTERASE NEGATIVE (NEGATIVE); URINE NITRITE NEGATIVE (NEGATIVE); URINE PROTEIN 1+ (NEGATIVE); URINE RBC 5 /uL (0-23.9); URINE UROBILINOGEN 0.2 mg/dL (0.2-1.0); URINE WBC 2 /uL (0-25.8)
[2023-01-04] MEDS: RIVAROXABAN 15 MG TABLET PO SCH (21:54)
[2023-01-04 23:10] VITALS: BMI 21.2
[2023-01-05 07:23] LABS: POTASSIUM 4.5 mmol/L (3.5-5.1)
[2023-01-05 07:28] LABS: BLOOD UREA NITROGEN 23.8 mg/dL (7-18)
[2023-01-05 07:31] LABS: CREATININE 1.5 mg/dL (0.55-1.3)
[2023-01-05] MEDS: metoPROLOL SUCCINATE 25 MG TAB.SR.24H (FP) PO SCH (09:54)
[2023-01-05] MEDS: LACTATED RINGERS SOLUTION 1,000 ML/1,000 ML INFUS.BAG IV SCH (16:30)
[2023-01-05] MEDS ORDERED: RIVAROXABAN 15 MG TABLET PO SCH (17:30)
[2023-01-05] MEDS: RIVAROXABAN 15 MG TABLET PO SCH (17:37)
[2023-01-06] MEDS ORDERED: CARBIDOPA/LEVODOPA 25/250 TABLET (FP) PO SCH ×2 (08:00→10:00)
[2023-01-06 08:03] LABS: POTASSIUM 4.2 mmol/L (3.5-5.1)
[2023-01-06 08:08] LABS: CALCIUM 9.1 mg/dL (8.5-10.1)
[2023-01-06 08:09] LABS: ALBUMIN 3.4 g/dl (3.4-5.0); BLOOD UREA NITROGEN 24.1 mg/dL (7-18)
[2023-01-06 08:12] LABS: CREATININE 1.4 mg/dL (0.55-1.3)
[2023-01-06 08:13] LABS: BILIRUBIN,TOTAL 0.9 mg/dL (0.2-1)
[2023-01-06 08:14] LABS: TOT PROT 6.4 g/dl (6.4-8.2)
[2023-01-06] MEDS: metoPROLOL SUCCINATE 25 MG TAB.SR.24H (FP) PO SCH (09:25)
[2023-01-06 09:41] VITALS: BP 124/74; PULSE 84; RESP 18; TEMP 97.8
[2023-01-06] MEDS ORDERED: amLODIPine BESYLATE 5 MG TABLET (FP) PO SCH (10:00)
[2023-01-06] MEDS ORDERED: PANTOPRAZOLE 40 MG TABLET PO SCH (10:00)
== END 2023-01-06 12:19 | disposition home or self-care (01) | DRG 641 ==
LOC: JER 12:36 → JERBED 15:55 → J4W 20:50
PROVIDERS: ADMIT Internal Medicine; ATTEND Internal Medicine
DX: E86.0 Dehydration (principal); N17.9 Acute kidney failure, unspecified; G20 Parkinson's disease; I10 Essential (primary) hypertension; E11.9 Type 2 diabetes mellitus without complications; Z86.73 Personal history of transient ischemic attack (TIA), and cerebral infarction without residual deficits; W07.XXXA Fall from chair, initial encounter; Y92.092 Bedroom in other non-institutional residence as the place of occurrence of the external cause; Z96.643 Presence of artificial hip joint, bilateral; I48.0 Paroxysmal atrial fibrillation
CPT/HCPCS: 0241U-QW; 36415; 70450-TC; 71045-TC-FY; 72125-TC; 72131-TC; 72170-TC-FY; 80048; 80053; 81003; 82550; 82962; 83735; 84484; 85025; 85610; 85730; 87086; 93005; 93010; 97116-GP; 97162-GP; 99285-25

== ENCOUNTER 2023-06-15 11:24 | Emergency (ER) | payer OTHER, BC ==
[2023-06-15] MEDS ORDERED: SODIUM CHLORIDE 0.9% 500 ML INFUS.BAG IV ONE (13:29)
[2023-06-15 13:40] VITALS: TEMP 98.4; BMI 20.7
[2023-06-15 14:39] LABS: BASO % 0.4 % (0-2.0); HEMATOCRIT 42.6 % (35.4-49); LYMPH % 14.2 % (8-40); MCH 29.9 pg (25.7-33.7); MEAN CELL VOLUME 90.7 fl (80-96); MEAN PLT VOLUME 7.2 fl (7.5-11.1); MONO % 11.7 % (3.8-10.2); NEUT % 71.7 % (42.8-82.8); PLATELET COUNT 221 10^3/uL (134-434); RBC 4.69 M/mm3 (4.00-5.60); WHITE BLOOD COUNT 5.6 K/mm3 (4.0-10.0)
[2023-06-15 14:58] LABS: POTASSIUM 4.6 mmol/L (3.5-5.1)
[2023-06-15 15:02] LABS: CALCIUM 9.1 mg/dL (8.5-10.1)
[2023-06-15 15:03] LABS: ALBUMIN 3.6 g/dl (3.4-5.0); BLOOD UREA NITROGEN 21.7 mg/dL (7-18); MAGNESIUM 1.9 mg/dL (1.8-2.4)
[2023-06-15 15:05] LABS: PHOSPHOROUS 6.1 mg/dL (2.5-4.9)
[2023-06-15 15:06] LABS: CREATININE 1.3 mg/dL (0.55-1.3)
[2023-06-15 15:07] LABS: BILIRUBIN,TOTAL 0.8 mg/dL (0.2-1); TOT PROT 6.7 g/dl (6.4-8.2)
[2023-06-15 15:15] LABS: INR 1.09 (0.83-1.09); PROTHROMBIN TIME (PATIENT) 12.6 SEC (9.7-13.0)
[2023-06-15 16:46] LABS: EPI CELLS 5 /uL (0-25.1); HYALINE CASTS 1 /uL (0-3.1); URINE APPEARANCE CLEAR; URINE BACTERIA 12 /uL (0-1359); URINE BILIRUBIN NEGATIVE (NEGATIVE); URINE COLOR YELLOW; URINE GLUCOSE (UA) 1+ (NEGATIVE); URINE KETONE NEGATIVE (NEGATIVE); URINE LEUK ESTERASE NEGATIVE (NEGATIVE); URINE NITRITE NEGATIVE (NEGATIVE); URINE PROTEIN 3+ (NEGATIVE); URINE RBC 7 /uL (0-23.9); URINE WBC 10 /uL (0-25.8)
[2023-06-15] MEDS ORDERED: SULFAMETHOXAZOLE/TRIMETHOPRIM 800MG/160MG D.S. TABLET PO ONE (17:56)
[2023-06-15] MEDS ORDERED: SULFAMETHOXAZOLE/TRIMETHOPRIM 800MG/160MG D.S. TABLET ONE (18:23)
[2023-06-15 18:42] VITALS: BP 105/70; PULSE 58; RESP 19
== END 2023-06-16 06:21 | disposition home or self-care (01) ==
LOC: JER 11:24
DX: N30.91 Cystitis, unspecified with hematuria (principal); R30.0 Dysuria; R30.9 Painful micturition, unspecified; R10.30 Lower abdominal pain, unspecified
CPT/HCPCS: 36415; 74177-TC; 80053; 81003; 83735; 84100; 85025; 85610; 85730; 86850; 86900; 86901; 87086; 99285-25; Q9967

== ENCOUNTER 2023-06-17 16:37 | Inpatient (IN) | payer OTHER, BC ==
[2023-06-17 17:44] LABS: BASO % 0.7 % (0-2.0); EOS % 2.1 % (0-4.5); HEMOGLOBIN 13.2 GM/dL (11.7-16.9); LYMPH % 15.8 % (8-40); MEAN CELL VOLUME 90.8 fl (80-96); MEAN PLT VOLUME 7.3 fl (7.5-11.1); MONO % 10.4 % (3.8-10.2); PLATELET COUNT 237 10^3/uL (134-434); RDW 14.1 % (11.9-15.9); WHITE BLOOD COUNT 5.2 K/mm3 (4.0-10.0)
[2023-06-17 17:53] LABS: INR 1.11 (0.83-1.09); PROTHROMBIN TIME (PATIENT) 12.9 SEC (9.7-13.0)
[2023-06-17] MEDS: SODIUM CHLORIDE 1,000 ML IV SCH (18:03)
[2023-06-17 18:08] LABS: POTASSIUM 4.5 mmol/L (3.5-5.1)
[2023-06-17 18:11] LABS: CALCIUM 8.8 mg/dL (8.5-10.1)
[2023-06-17 18:12] LABS: ALBUMIN 3.6 g/dl (3.4-5.0)
[2023-06-17 18:13] LABS: BLOOD UREA NITROGEN 27.4 mg/dL (7-18)
[2023-06-17 18:15] LABS: CREATININE 2.3 mg/dL (0.55-1.3)
[2023-06-17 18:17] LABS: TOT PROT 6.6 g/dl (6.4-8.2)
[2023-06-17 18:18] LABS: BILIRUBIN,TOTAL 0.7 mg/dL (0.2-1)
[2023-06-17] MEDS ORDERED: hydrALAZINE HCL 20 MG/ML VIAL IVPUSH ONE (18:30)
[2023-06-17] MEDS ORDERED: hydrALAZINE HCL 20 MG/ML VIAL ONE (18:32)
[2023-06-17] MEDS ORDERED: CARBIDOPA/LEVODOPA 25/250 TABLET (FP) PO ONE (18:54)
[2023-06-17] MEDS ORDERED: levETIRAcetam 500 MG/5 ML INJECTION VIAL IVPB ONE ×2 (18:55→18:57)
[2023-06-17] MEDS ORDERED: CARBIDOPA/LEVODOPA 25/250 TABLET (FP) ONE (18:57)
[2023-06-17] MEDS ORDERED: ACETAMINOPHEN 325 MG TABLET (FP) PO PRN (20:17)
[2023-06-17] MEDS ORDERED: DOCUSATE SODIUM 100 MG CAPSULE (FP) PO PRN (20:17)
[2023-06-17] MEDS: INSULIN SLIDING SCALE (NOVOLOG) 1 VIAL SQ SCH (22:17)
[2023-06-18] MEDS: INSULIN SLIDING SCALE (NOVOLOG) 1 VIAL SQ SCH ×4 (06:29→21:34)
[2023-06-18 09:03] LABS: BASO % 0.6 % (0-2.0); EOS % 4.3 % (0-4.5); HEMATOCRIT 36.5 % (35.4-49); LYMPH % 20.4 % (8-40); MCHC 32.8 g/dl (32.0-35.9); MEAN CELL VOLUME 91.6 fl (80-96); MEAN PLT VOLUME 7.5 fl (7.5-11.1); MONO % 11.1 % (3.8-10.2); NEUT % 63.6 % (42.8-82.8); PLATELET COUNT 216 10^3/uL (134-434); RBC 3.98 M/mm3 (4.00-5.60); RDW 14.3 % (11.9-15.9); WHITE BLOOD COUNT 5.2 K/mm3 (4.0-10.0)
[2023-06-18] MEDS: CARBIDOPA/LEVODOPA 25/250 TABLET (FP) PO SCH ×4 (09:04→21:22)
[2023-06-18] MEDS: PANTOPRAZOLE 40 MG TABLET PO SCH (09:04)
[2023-06-18] MEDS: levETIRAcetam 500 MG TABLET (FP) PO SCH ×2 (09:04→21:24)
[2023-06-18 09:13] LABS: POTASSIUM 4.6 mmol/L (3.5-5.1)
[2023-06-18 09:28] LABS: BLOOD UREA NITROGEN 24.7 mg/dL (7-18)
[2023-06-18 09:29] LABS: CALCIUM 8.7 mg/dL (8.5-10.1)
[2023-06-18 09:30] LABS: CREATININE 1.8 mg/dL (0.55-1.3); MAGNESIUM 2.2 mg/dL (1.8-2.4); PHOSPHOROUS 3.8 mg/dL (2.5-4.9)
[2023-06-18] MEDS ORDERED: MIRTAZAPINE 15 MG TABLET (FP) PO SCH (10:00)
[2023-06-18] MEDS: SODIUM CHLORIDE 1,000 ML IV SCH (16:57)
[2023-06-18] MEDS ORDERED: INSULIN SLIDING SCALE (NOVOLOG) 1 VIAL SQ ONE (21:02)
[2023-06-18] MEDS: MIRTAZAPINE 15 MG TABLET (FP) PO SCH (21:23)
[2023-06-18] MEDS: ROSUVASTATIN CA 10 MG TABLET PO SCH (21:23)
[2023-06-18 22:58] VITALS: BMI 19.8
[2023-06-19] MEDS: INSULIN SLIDING SCALE (NOVOLOG) 1 VIAL SQ SCH ×4 (06:05→22:39)
[2023-06-19] MEDS ORDERED: INSULIN SLIDING SCALE (NOVOLOG) 1 VIAL SQ ONE (06:07)
[2023-06-19 08:58] LABS: BASO % 0.5 % (0-2.0); HEMATOCRIT 35.2 % (35.4-49); HEMOGLOBIN 11.5 GM/dL (11.7-16.9); LYMPH % 21.4 % (8-40); MCH 29.8 pg (25.7-33.7); MCHC 32.6 g/dl (32.0-35.9); MEAN CELL VOLUME 91.5 fl (80-96); MONO % 11.9 % (3.8-10.2); NEUT % 61.2 % (42.8-82.8); PLATELET COUNT 195 10^3/uL (134-434); RBC 3.85 M/mm3 (4.00-5.60); RDW 13.8 % (11.9-15.9); WHITE BLOOD COUNT 4.6 K/mm3 (4.0-10.0)
[2023-06-19 09:11] LABS: POTASSIUM 4.5 mmol/L (3.5-5.1)
[2023-06-19 09:14] LABS: ALBUMIN 3.2 g/dl (3.4-5.0); BLOOD UREA NITROGEN 19.5 mg/dL (7-18); CALCIUM 8.5 mg/dL (8.5-10.1)
[2023-06-19 09:17] LABS: CREATININE 1.6 mg/dL (0.55-1.3)
[2023-06-19 09:19] LABS: BILIRUBIN,TOTAL 0.8 mg/dL (0.2-1); TOT PROT 5.9 g/dl (6.4-8.2)
[2023-06-19] MEDS: CARBIDOPA/LEVODOPA 25/250 TABLET (FP) PO SCH ×4 (11:25→22:31)
[2023-06-19] MEDS: levETIRAcetam 500 MG TABLET (FP) PO SCH ×2 (11:25→22:30)
[2023-06-19] MEDS: VITAMIN B COMP W-C 1 EA TABLET (NEPHRO-VITE) PO SCH (11:26)
[2023-06-19] MEDS: PANTOPRAZOLE 40 MG TABLET PO SCH (11:26)
[2023-06-19 13:21] VITALS: RESP 18
[2023-06-19] MEDS: SODIUM CHLORIDE 1,000 ML IV SCH (17:17)
[2023-06-19] MEDS: HEPARIN NA (PORCINE) 5,000 UNITS/ML 1ML VIAL SQ SCH (22:30)
[2023-06-19] MEDS: ROSUVASTATIN CA 10 MG TABLET PO SCH (22:30)
[2023-06-19] MEDS: MIRTAZAPINE 15 MG TABLET (FP) PO SCH (22:30)
[2023-06-20] MEDS: INSULIN SLIDING SCALE (NOVOLOG) 1 VIAL SQ SCH ×4 (07:47→21:58)
[2023-06-20] MEDS: CARBIDOPA/LEVODOPA 25/250 TABLET (FP) PO SCH ×4 (09:53→21:45)
[2023-06-20] MEDS: VITAMIN B COMP W-C 1 EA TABLET (NEPHRO-VITE) PO SCH (09:53)
[2023-06-20] MEDS: PANTOPRAZOLE 40 MG TABLET PO SCH (09:53)
[2023-06-20] MEDS: HEPARIN NA (PORCINE) 5,000 UNITS/ML 1ML VIAL SQ SCH ×2 (09:53→21:44)
[2023-06-20 09:56] LABS: BASO % 0.6 % (0-2.0); EOS % 4.4 % (0-4.5); HEMATOCRIT 37.5 % (35.4-49); HEMOGLOBIN 12.2 GM/dL (11.7-16.9); LYMPH % 17.3 % (8-40); MCH 29.9 pg (25.7-33.7); MCHC 32.6 g/dl (32.0-35.9); MEAN CELL VOLUME 91.8 fl (80-96); MEAN PLT VOLUME 7.7 fl (7.5-11.1); MONO % 10.4 % (3.8-10.2); NEUT % 67.3 % (42.8-82.8); PLATELET COUNT 203 10^3/uL (134-434); RBC 4.08 M/mm3 (4.00-5.60); RDW 13.7 % (11.9-15.9); WHITE BLOOD COUNT 5.9 K/mm3 (4.0-10.0)
[2023-06-20] MEDS: OXcarbazepine 150 MG TABLET (UD) PO SCH ×2 (09:56→21:45)
[2023-06-20 10:16] LABS: POTASSIUM 4.6 mmol/L (3.5-5.1)
[2023-06-20 10:18] LABS: CALCIUM 9.1 mg/dL (8.5-10.1)
[2023-06-20 10:19] LABS: BLOOD UREA NITROGEN 20.8 mg/dL (7-18)
[2023-06-20 10:22] LABS: CREATININE 1.4 mg/dL (0.55-1.3); PHOSPHOROUS 3.4 mg/dL (2.5-4.9)
[2023-06-20] MEDS: ARTIFICIAL TEARS OPHTHALMIC DROPS OU SCH ×2 (12:17→21:44)
[2023-06-20] MEDS ORDERED: SOD BORATE/BORIC AC/WATER/NACL (EYE WASH) 118 ML BOTTLE OU ONE (13:00)
[2023-06-20] MEDS: MIRTAZAPINE 15 MG TABLET (FP) PO SCH (21:44)
[2023-06-20] MEDS: ROSUVASTATIN CA 10 MG TABLET PO SCH (21:44)
[2023-06-21] MEDS: SODIUM CHLORIDE 1,000 ML IV SCH ×2 (04:56→17:17)
[2023-06-21] MEDS: INSULIN SLIDING SCALE (NOVOLOG) 1 VIAL SQ SCH ×4 (06:23→22:06)
[2023-06-21 09:36] LABS: BASO % 0.4 % (0-2.0); EOS % 4.2 % (0-4.5); HEMATOCRIT 36.7 % (35.4-49); HEMOGLOBIN 11.9 GM/dL (11.7-16.9); MCH 29.7 pg (25.7-33.7); MCHC 32.4 g/dl (32.0-35.9); MEAN CELL VOLUME 91.6 fl (80-96); MEAN PLT VOLUME 7.7 fl (7.5-11.1); MONO % 9.5 % (3.8-10.2); NEUT % 71.9 % (42.8-82.8); PLATELET COUNT 185 10^3/uL (134-434); RDW 13.8 % (11.9-15.9); WHITE BLOOD COUNT 6.2 K/mm3 (4.0-10.0)
[2023-06-21] MEDS: CARBIDOPA/LEVODOPA 25/250 TABLET (FP) PO SCH ×4 (09:47→22:55)
[2023-06-21] MEDS: OXcarbazepine 150 MG TABLET (UD) PO SCH ×2 (09:48→21:00)
[2023-06-21] MEDS: PANTOPRAZOLE 40 MG TABLET PO SCH (09:48)
[2023-06-21] MEDS: HEPARIN NA (PORCINE) 5,000 UNITS/ML 1ML VIAL SQ SCH ×2 (09:48→22:54)
[2023-06-21] MEDS: VITAMIN B COMP W-C 1 EA TABLET (NEPHRO-VITE) PO SCH (09:48)
[2023-06-21] MEDS: ARTIFICIAL TEARS OPHTHALMIC DROPS OU SCH ×2 (09:50→22:53)
[2023-06-21 09:59] LABS: POTASSIUM 4.5 mmol/L (3.5-5.1)
[2023-06-21 10:01] LABS: CALCIUM 8.8 mg/dL (8.5-10.1)
[2023-06-21 10:02] LABS: BLOOD UREA NITROGEN 26.4 mg/dL (7-18); MAGNESIUM 2.3 mg/dL (1.8-2.4)
[2023-06-21 10:05] LABS: CREATININE 1.7 mg/dL (0.55-1.3); PHOSPHOROUS 3.3 mg/dL (2.5-4.9)
[2023-06-21] MEDS: ROSUVASTATIN CA 10 MG TABLET PO SCH (22:53)
[2023-06-21] MEDS: MIRTAZAPINE 15 MG TABLET (FP) PO SCH (22:54)
[2023-06-22] MEDS: SODIUM CHLORIDE 1,000 ML IV SCH ×2 (06:09→23:08)
[2023-06-22] MEDS: INSULIN SLIDING SCALE (NOVOLOG) 1 VIAL SQ SCH ×4 (06:11→23:10)
[2023-06-22] MEDS: CARBIDOPA/LEVODOPA 25/250 TABLET (FP) PO SCH ×4 (09:27→23:09)
[2023-06-22] MEDS: VITAMIN B COMP W-C 1 EA TABLET (NEPHRO-VITE) PO SCH (09:27)
[2023-06-22] MEDS: PANTOPRAZOLE 40 MG TABLET PO SCH (09:27)
[2023-06-22] MEDS: HEPARIN NA (PORCINE) 5,000 UNITS/ML 1ML VIAL SQ SCH ×2 (09:27→23:10)
[2023-06-22] MEDS: ARTIFICIAL TEARS OPHTHALMIC DROPS OU SCH ×2 (09:28→23:10)
[2023-06-22] MEDS: OXcarbazepine 150 MG TABLET (UD) PO SCH ×2 (09:28→23:55)
[2023-06-22 09:55] LABS: HEMATOCRIT 31.4 % (35.4-49); HEMOGLOBIN 10.5 GM/dL (11.7-16.9); MCH 30.8 pg (25.7-33.7); MCHC 33.6 g/dl (32.0-35.9); MEAN CELL VOLUME 91.8 fl (80-96); MEAN PLT VOLUME 8.1 fl (7.5-11.1); PLATELET COUNT 170 10^3/uL (134-434); RBC 3.42 M/mm3 (4.00-5.60); RDW 13.7 % (11.9-15.9); WHITE BLOOD COUNT 6.4 K/mm3 (4.0-10.0)
[2023-06-22 10:16] LABS: POTASSIUM 4.4 mmol/L (3.5-5.1)
[2023-06-22 10:25] LABS: ALBUMIN 2.9 g/dl (3.4-5.0); BLOOD UREA NITROGEN 27.2 mg/dL (7-18); CALCIUM 8.5 mg/dL (8.5-10.1)
[2023-06-22 10:26] LABS: TOT PROT 5.5 g/dl (6.4-8.2)
[2023-06-22 10:27] LABS: BILIRUBIN,TOTAL 0.5 mg/dL (0.2-1); CREATININE 1.4 mg/dL (0.55-1.3)
[2023-06-22] MEDS: MIRTAZAPINE 15 MG TABLET (FP) PO SCH (23:09)
[2023-06-22] MEDS: ROSUVASTATIN CA 10 MG TABLET PO SCH (23:10)
[2023-06-23] MEDS: INSULIN SLIDING SCALE (NOVOLOG) 1 VIAL SQ SCH ×2 (07:14→12:22)
[2023-06-23] MEDS: HEPARIN NA (PORCINE) 5,000 UNITS/ML 1ML VIAL SQ SCH (09:33)
[2023-06-23] MEDS: PANTOPRAZOLE 40 MG TABLET PO SCH (09:34)
[2023-06-23] MEDS: CARBIDOPA/LEVODOPA 25/250 TABLET (FP) PO SCH ×2 (09:34→13:04)
[2023-06-23] MEDS: VITAMIN B COMP W-C 1 EA TABLET (NEPHRO-VITE) PO SCH (09:34)
[2023-06-23] MEDS: OXcarbazepine 150 MG TABLET (UD) PO SCH (09:34)
[2023-06-23] MEDS: ARTIFICIAL TEARS OPHTHALMIC DROPS OU SCH (09:47)
[2023-06-23 14:09] VITALS: BP 126/73; PULSE 81; TEMP 98
== END 2023-06-23 18:29 | DRG 101 ==
LOC: JER 16:37 → JERBED 18:59 → J5S 22:08
PROVIDERS: ADMIT Internal Medicine; ATTEND Internal Medicine
DX: R56.9 Unspecified convulsions (principal); N17.9 Acute kidney failure, unspecified; G20.A1 Parkinson's disease without dyskinesia, without mention of fluctuations; F02.80 Dementia in other diseases classified elsewhere, unspecified severity, without behavioral disturbance, psychotic disturbance, mood disturbance, and anxiety; I10 Essential (primary) hypertension; Z79.01 Long term (current) use of anticoagulants; I95.89 Other hypotension; E78.5 Hyperlipidemia, unspecified; R31.9 Hematuria, unspecified; E86.0 Dehydration; I48.0 Paroxysmal atrial fibrillation; N40.1 Benign prostatic hyperplasia with lower urinary tract symptoms; E11.9 Type 2 diabetes mellitus without complications
CPT/HCPCS: 36415; 70450-TC; 70496-TC; 70498-TC; 70553-TC; 74177-TC; 76775-TC; 80048; 80053; 80061; 81003; 82550; 82553; 82962; 83036; 83735; 84100; 84484; 85025; 85027; 85610; 85730; 86850; 86900; 86901; 87086; 87635; 93005; 93010; 97116-GP; 97162-GP; 99285-25; J1644; Q9967

== ENCOUNTER 2023-10-18 17:12 | Inpatient (IN) | payer OTHER, BC ==
[2023-10-18 19:22] LABS: BASO % 0.7 % (0-2.0); EOS % 1.8 % (0-4.5); HEMATOCRIT 37.1 % (35.4-49); HEMOGLOBIN 12.1 GM/dL (11.7-16.9); LYMPH % 17.5 % (8-40); MCH 30.4 pg (25.7-33.7); MCHC 32.6 g/dl (32.0-35.9); MEAN CELL VOLUME 93.2 fl (80-96); MEAN PLT VOLUME 6.2 fl (7.5-11.1); MONO % 8.7 % (3.8-10.2); NEUT % 71.3 % (42.8-82.8); PLATELET COUNT 318 10^3/uL (134-434); RBC 3.98 M/mm3 (4.00-5.60); RDW 13.5 % (11.9-15.9); WHITE BLOOD COUNT 8.2 K/mm3 (4.0-10.0)
[2023-10-18 19:56] LABS: POTASSIUM 4.6 mmol/L (3.5-5.1)
[2023-10-18 19:58] LABS: ALBUMIN 3.2 g/dl (3.4-5.0); CALCIUM 8.7 mg/dL (8.5-10.1)
[2023-10-18 20:00] LABS: BLOOD UREA NITROGEN 29.3 mg/dL (7-18)
[2023-10-18 20:01] LABS: CREATININE 1.6 mg/dL (0.55-1.3)
[2023-10-18 20:03] LABS: BILIRUBIN,TOTAL 0.5 mg/dL (0.2-1); TOT PROT 6.4 g/dl (6.4-8.2)
[2023-10-18 21:11] LABS: EPI CELLS 2 /uL (0-25.1); HYALINE CASTS 0 /uL (0-3.1); URINE APPEARANCE TURBID; URINE BACTERIA >9,000 /uL (0-1359); URINE BILIRUBIN NEGATIVE (NEGATIVE); URINE COLOR YELLOW; URINE GLUCOSE (UA) NEGATIVE (NEGATIVE); URINE KETONE TRACE (NEGATIVE); URINE LEUK ESTERASE 3+ (NEGATIVE); URINE NITRITE NEGATIVE (NEGATIVE); URINE PROTEIN 3+ (NEGATIVE); URINE RBC 48 /uL (0-23.9); URINE WBC 4805 /uL (0-25.8)
[2023-10-18] MEDS ORDERED: CEFTRIAXONE 1 GM/50 ML BAG ONE (21:49)
[2023-10-18] MEDS: CEFTRIAXONE 1,000 MG in DEXTROSE 5%-WATER - 50 ML IVPB ONE (22:00)
[2023-10-19] MEDS: CEFTRIAXONE 1 GM in DEXTROSE 5%-WATER - 50 ML IVPB SCH (05:23)
[2023-10-19] MEDS ORDERED: PATIENT'S OWN MEDICATION (NON-FORMULARY) (Midodrine Hcl [Midodrine Hcl] 10 MG Tablet) PO SCH (06:00)
[2023-10-19] MEDS ORDERED: PATIENT'S OWN MEDICATION (NON-FORMULARY) (Midodrine Hcl [Midodrine Hcl] 10 MG) PO SCH (06:00)
[2023-10-19] MEDS: CARBIDOPA/LEVODOPA 25/250 TABLET (FP) PO SCH (06:56)
[2023-10-19 08:46] LABS: BASO % 0.4 % (0-2.0); HEMOGLOBIN 12.1 GM/dL (11.7-16.9); LYMPH % 19.9 % (8-40); MCH 31.1 pg (25.7-33.7); MCHC 33.7 g/dl (32.0-35.9); MEAN CELL VOLUME 92.3 fl (80-96); MEAN PLT VOLUME 6.5 fl (7.5-11.1); MONO % 9.7 % (3.8-10.2); PLATELET COUNT 287 10^3/uL (134-434); RDW 13.3 % (11.9-15.9); WHITE BLOOD COUNT 6.7 K/mm3 (4.0-10.0)
[2023-10-19 09:13] LABS: POTASSIUM 4.6 mmol/L (3.5-5.1)
[2023-10-19 09:20] LABS: BLOOD UREA NITROGEN 27.6 mg/dL (7-18); CALCIUM 8.9 mg/dL (8.5-10.1); MAGNESIUM 2.3 mg/dL (1.8-2.4)
[2023-10-19 09:23] LABS: CREATININE 1.5 mg/dL (0.55-1.3); PHOSPHOROUS 3.6 mg/dL (2.5-4.9)
[2023-10-19 09:25] LABS: BILIRUBIN,TOTAL 0.5 mg/dL (0.2-1); TOT PROT 6.1 g/dl (6.4-8.2)
[2023-10-19] MEDS: PANTOPRAZOLE 40 MG TABLET PO SCH (09:48)
[2023-10-19] MEDS: VITAMIN B COMP W-C 1 EA TABLET (NEPHRO-VITE) PO SCH (09:48)
[2023-10-19] MEDS ORDERED: PATIENT'S OWN MEDICATION (NON-FORMULARY) (Pimavanserin Tartrate [Nuplazid] 34 MG Capsule) PO SCH (10:00)
[2023-10-19] MEDS: ARTIFICIAL TEARS OPHTHALMIC DROPS OU SCH (11:10)
[2023-10-19] MEDS: OXcarbazepine 150 MG TABLET (UD) PO SCH (11:10)
[2023-10-19] MEDS: MIDODRINE HCL 5 MG TABLET PO SCH (13:15)
[2023-10-19] MEDS: RIVAROXABAN 15 MG TABLET PO SCH (17:55)
[2023-10-19] MEDS: ROSUVASTATIN CA 10 MG TABLET PO SCH (21:47)
[2023-10-19] MEDS: MIRTAZAPINE 15 MG TABLET (FP) PO SCH (21:51)
[2023-10-20 08:10] LABS: HEMATOCRIT 34.5 % (35.4-49); HEMOGLOBIN 11.6 GM/dL (11.7-16.9); MCH 31.2 pg (25.7-33.7); MCHC 33.7 g/dl (32.0-35.9); MEAN CELL VOLUME 92.7 fl (80-96); MEAN PLT VOLUME 6.6 fl (7.5-11.1); PLATELET COUNT 278 10^3/uL (134-434); RBC 3.72 M/mm3 (4.00-5.60); RDW 13.2 % (11.9-15.9); WHITE BLOOD COUNT 5.9 K/mm3 (4.0-10.0)
[2023-10-20 08:40] LABS: POTASSIUM 4.9 mmol/L (3.5-5.1)
[2023-10-20 08:57] LABS: CALCIUM 8.8 mg/dL (8.5-10.1); CREATININE 1.6 mg/dL (0.55-1.3); PHOSPHOROUS 3.3 mg/dL (2.5-4.9)
[2023-10-20 08:58] LABS: ALBUMIN 2.9 g/dl (3.4-5.0); BILIRUBIN,TOTAL 0.4 mg/dL (0.2-1); BLOOD UREA NITROGEN 34.6 mg/dL (7-18); MAGNESIUM 2.4 mg/dL (1.8-2.4)
[2023-10-20] MEDS: PHENAZOPYRIDINE HCL 100 MG TABLET (FP) PO SCH (13:27)
[2023-10-20 14:17] VITALS: BMI 19.3
[2023-10-22 04:09] VITALS: RESP 18
[2023-10-22] MEDS: hydrALAZINE HCL 20 MG/ML VIAL IVPUSH ONE ×2 (07:24→20:56)
[2023-10-22] MEDS: LABETALOL HCL 5 MG/1 ML (100MG/20 ML VIAL) IVPUSH ONE (07:57)
[2023-10-22] MEDS: hydrALAZINE HCL 20 MG/ML VIAL IM ONE (21:37)
[2023-10-23 04:28] VITALS: TEMP 99
[2023-10-23 10:31] VITALS: BP 146/64; PULSE 81
== END 2023-10-23 11:31 | disposition home or self-care (01) | DRG 689 ==
LOC: JER 17:12 → JERBED 21:46 → OBSVTOIN 22:46 → J6S 10-19 02:01
PROVIDERS: ADMIT Internal Medicine; ATTEND Internal Medicine
DX: N39.0 Urinary tract infection, site not specified (principal); G93.41 Metabolic encephalopathy; F03.918 Unspecified dementia, unspecified severity, with other behavioral disturbance; G20.A1 Parkinson's disease without dyskinesia, without mention of fluctuations; N18.30 Chronic kidney disease, stage 3 unspecified; E78.5 Hyperlipidemia, unspecified; I12.9 Hypertensive chronic kidney disease with stage 1 through stage 4 chronic kidney disease, or unspecified chronic kidney disease
CPT/HCPCS: 36415; 71045-TC-FY; 80053; 80061; 81003; 83036; 83735; 83880; 84100; 85025; 85027; 87086; 87186; 93005; 93010; 93306-TC; 97116-GP; 97162-GP; 99285-25; G0378

== ENCOUNTER 2023-12-11 06:03 | Emergency (ER) | payer OTHER, BC ==
[2023-12-11] MEDS ORDERED: RAPID SEQUENCE INTUBATION KIT NR ONE (06:08)
[2023-12-11 06:22] VITALS: BMI 19.2
[2023-12-11] MEDS ORDERED: SODIUM CHLORIDE 1,000 ML IV SCH (06:30)
[2023-12-11] MEDS ORDERED: niCARdipine HCL 25 MG/10 ML AMPUL IVPB ONE (06:35)
[2023-12-11] MEDS ORDERED: PROPOFOL 1,000,000 MCG/100 ML VIAL ONE (06:40)
[2023-12-11] MEDS ORDERED: FACTOR XA,INACTIVATED - BOLUS 400 MG/40 ML VIAL IVPB ONE (06:57)
[2023-12-11] MEDS ORDERED: levETIRAcetam 500 MG/5 ML INJECTION VIAL IVPB ONE (06:58)
[2023-12-11] MEDS: PROPOFOL 1,000,000 MCG/100 ML VIAL IVPB SCH (06:58)
[2023-12-11] MEDS: levETIRAcetam 500 MG/5 ML INJECTION VIAL IVPB ONE (06:59)
[2023-12-11] MEDS: LORazepam 2 MG/ML SDV VIAL IVPUSH ONE (06:59)
[2023-12-11 07:05] VITALS: TEMP 98.5
[2023-12-11] MEDS: NICARDIPINE 25 MG in DEXTROSE 5%-WATER - 240 ML IVPB SCH (07:07)
[2023-12-11 07:11] LABS: BASO % 0.1 % (0-2.0); EOS % 0.1 % (0-4.5); HEMOGLOBIN 11.2 GM/dL (11.7-16.9); LYMPH % 7.5 % (8-40); MCH 29.9 pg (25.7-33.7); MCHC 31.9 g/dl (32.0-35.9); MEAN CELL VOLUME 93.6 fl (80-96); MEAN PLT VOLUME 7.3 fl (7.5-11.1); MONO % 6.1 % (3.8-10.2); NEUT % 86.2 % (42.8-82.8); PLATELET COUNT 274 10^3/uL (134-434); RBC 3.73 M/mm3 (4.00-5.60); RDW 14.2 % (11.9-15.9); WHITE BLOOD COUNT 12.9 K/mm3 (4.0-10.0)
[2023-12-11] MEDS ORDERED: SODIUM CHLORIDE 50 ML IVPB ONE ×2 (07:13→08:58)
[2023-12-11 07:18] LABS: INR 1.3 (0.83-1.09); PROTHROMBIN TIME (PATIENT) 14.6 SEC (9.7-13.0)
[2023-12-11] MEDS ORDERED: FACTOR XA,INACTIVATED-ZHZO 480 MG/48 ML VIAL IVPB ONE (07:23)
[2023-12-11 07:25] LABS: ALBUMIN 3.9 g/dl (3.4-5.0); CALCIUM 8.7 mg/dL (8.5-10.1); MAGNESIUM 1.9 mg/dL (1.8-2.4)
[2023-12-11 07:26] LABS: BLOOD UREA NITROGEN 30.8 mg/dL (7-18)
[2023-12-11 07:28] LABS: CREATININE 1.5 mg/dL (0.55-1.3)
[2023-12-11 07:30] LABS: BILIRUBIN,TOTAL 0.4 mg/dL (0.2-1); TOT PROT 6.4 g/dl (6.4-8.2)
[2023-12-11 07:41] VITALS: BP 153/65; PULSE 77; RESP 16
== END 2023-12-11 07:45 | disposition short-term general hospital (02) ==
LOC: JER 06:03
PROC: 3E033GC Introduction of Other Therapeutic Substance into Peripheral Vein, Percutaneous Approach (ICD-10-PCS; principal; 2023-12-11)
PROC: 3E033GC Introduction of Other Therapeutic Substance into Peripheral Vein, Percutaneous Approach (ICD-10-PCS; 2023-12-11)
DX: R46.4 Slowness and poor responsiveness (principal); R06.03 Acute respiratory distress
CPT/HCPCS: 36415; 70450-TC; 80053; 80061; 82550; 83036; 83735; 83880; 84484; 85025; 85610; 85730; 99291